=== PATIENT | female | born 1950 | race Two or more races ===

== ENCOUNTER → 2020-02-05 | Emergency (ER) | payer OTHER ==
[~2020-02-05] VITALS: Ht 172.7 cm; Wt 90.7 kg
[~2020-02-05] MED LIST: ACETAMINOPHEN 325 MG TAB PO ONE; ASPirin 81 mg TAB PO ONE; IOHEXOL 350 MG/ML 100ML IJ ONE
[2020-02-05 14:11] LABS: Basophils # (auto) 0.1 10 ^3/uL (0-0.2); Basophils % (auto) 1.1 % (0.0-2.0); Eosinophils # (auto) 0.1 10 ^3/uL (0-0.8); Eosinophils % (auto) 1.5 % (0.0-7.0); Hematocrit 37.8 % (36.0-46.0); Lymphocytes # (auto) 1.9 10 ^3/uL (0.4-5.4); Lymphocytes % (auto) 32.6 % (10.0-50.0); Mean Corpuscular Hemoglobin 31.7 pg (28.0-32.0); Mean Corpuscular Hgb Conc. 34.4 g/dL (32.0-36.0); Mean Corpuscular Volume 92.1 fL (80.0-100.0); Monocytes # (auto) 0.5 10 ^3/uL (0-1.3); Monocytes % (auto) 8.1 % (0.0-12.0); Neutrophils # (auto) 3.3 10 ^3/uL (1.6-8.6); Neutrophils % (auto) 56.7 % (37.0-80.0); Platelet Count (auto) 198 10^3/uL (140-450); Red Cell Distribution Width 12.7 % (11.8-14.3); White Blood Cell 5.8 10^3/uL (4.4-10.8)
[2020-02-05 14:25] LABS: INR 0.94 (0.9-1.15); Partial Thromboplastin Time 27.9 sec (23.64-32.05)
[2020-02-05 14:28] LABS: Albumin 3.7 g/dL (3.4-5.0); Anion Gap 8 (5-15); Blood Urea Nitrogen 11 mg/dL (7-18); Calcium 8.7 mg/dL (8.5-10.1); Carbon Dioxide 22 mmol/L (21-32); Chloride 110 mmol/L (98-107); Glucose 98 mg/dL (74-106); Potassium 3.8 mmol/L (3.5-5.1); Sodium 140 mmol/L (136-145)
[2020-02-05 14:34] LABS: Alanine Aminotransferase 38 U/L (13-56); Alkaline Phosphatase 78 U/L (45-117); Aspartate Aminotransferase 29 U/L (15-37); BUN/Creatinine Ratio 12.1; Bilirubin, Total 0.3 mg/dL (0.2-1.0); GFR African American 79 mL/min; GFR Non-African American 65 mL/min; Total Protein 7.6 g/dL (6.4-8.2)
[2020-02-05 14:55] LABS: Urine Bacteria NONE SEEN /hpf (None Seen); Urine Blood Negative /uL (Negative); Urine Specific Gravity 1.008 (1.001-1.035); Urine WBC <1 /hpf (0 - 5)
[2020-02-05 19:15] VITALS: BP 134/71
== END | disposition home or self-care (01) ==
LOC: ER 13:23 → EDBD 13:23
DX: R07.89 Other chest pain (principal); J20.9 Acute bronchitis, unspecified; K83.8 Other specified diseases of biliary tract; R79.89 Other specified abnormal findings of blood chemistry; R94.6 Abnormal results of thyroid function studies; I10 Essential (primary) hypertension; E78.5 Hyperlipidemia, unspecified; Z90.49 Acquired absence of other specified parts of digestive tract; Z88.0 Allergy status to penicillin; Z88.5 Allergy status to narcotic agent; Z88.2 Allergy status to sulfonamides; Z88.8 Allergy status to other drugs, medicaments and biological substances
CPT/HCPCS: 36415; 71046; 71275; 80053; 81001; 83735; 83880; 84443; 84484; 85025; 85379; 85610; 85730; 93005; 99285; J7030; Q9967

== ENCOUNTER 2021-01-14 17:02 | Emergency (ER) | payer OTHER ==
[~2021-01-14] VITALS: Ht 152.4 cm; Wt 77.1 kg
[2021-01-14 17:06] VITALS: BP 146/86
== END 2021-01-14 20:48 | disposition home or self-care (01) ==
LOC: ER 17:02
DX: M77.32 Calcaneal spur, left foot (principal); M79.672 Pain in left foot; E78.5 Hyperlipidemia, unspecified; I10 Essential (primary) hypertension; Z88.6 Allergy status to analgesic agent; Z88.0 Allergy status to penicillin; Z88.5 Allergy status to narcotic agent; Z88.2 Allergy status to sulfonamides; Z90.49 Acquired absence of other specified parts of digestive tract
CPT/HCPCS: 73630; 93971

== ENCOUNTER 2021-11-13 10:24 | Emergency (ER) | payer OTHER ==
[~2021-11-13] VITALS: Ht 170.2 cm; Wt 75.7 kg
[2021-11-13 11:13] LABS: Basophils # (auto) 0 10 ^3/uL (0-0.2); Basophils % (auto) 0.8 % (0.0-2.0); Eosinophils # (auto) 0.1 10 ^3/uL (0-0.8); Eosinophils % (auto) 1.3 % (0.0-7.0); Hematocrit 41.6 % (36.0-46.0); Hemoglobin 14.2 g/dL (12.2-16.2); Lymphocytes # (auto) 1.3 10 ^3/uL (0.4-5.4); Lymphocytes % (auto) 26.6 % (10.0-50.0); Mean Corpuscular Hemoglobin 31.2 pg (28.0-32.0); Mean Corpuscular Hgb Conc. 34.1 g/dL (32.0-36.0); Mean Corpuscular Volume 91.5 fL (80.0-100.0); Monocytes # (auto) 0.3 10 ^3/uL (0-1.3); Monocytes % (auto) 7.1 % (0.0-12.0); Neutrophils # (auto) 3.1 10 ^3/uL (1.6-8.6); Neutrophils % (auto) 64.2 % (37.0-80.0); Nucleated Red Blood Cells % 0.1 %; Red Blood Cells 4.55 10^6/uL (4.0-5.20); Red Cell Distribution Width 12.9 % (11.8-14.3); White Blood Cell 4.8 10^3/uL (4.4-10.8)
[2021-11-13] MEDS ORDERED: MECL1TAB42 PO (11:30)
[2021-11-13] MEDS ORDERED: MECLIZINE HCL 25 MG TAB PO ONE (11:30)
[2021-11-13 11:33] LABS: Potassium 3.8 mmol/L (3.5-5.1)
[2021-11-13 11:45] LABS: Albumin 3.9 g/dL (3.4-5.0); BUN/Creatinine Ratio 13.7; Bilirubin, Total 0.6 mg/dL (0.2-1.0); Calcium 8.7 mg/dL (8.5-10.1); Total Protein 8.1 g/dL (6.4-8.2)
[2021-11-13 13:00] VITALS: BP 138/78
== END 2021-11-13 15:02 | disposition home or self-care (01) ==
LOC: ER 10:24
DX: R42 Dizziness and giddiness (principal); I10 Essential (primary) hypertension; E03.9 Hypothyroidism, unspecified; E78.5 Hyperlipidemia, unspecified; Z90.49 Acquired absence of other specified parts of digestive tract
CPT/HCPCS: 36415; 70450; 71045; 80053; 84484; 85025; 93005; 99285; J8597

== ENCOUNTER 2022-04-30 13:03 | Emergency (ER) | payer OTHER ==
[~2022-04-30] VITALS: Ht 152.4 cm; Wt 78.0 kg
[~2022-04-30 13:03] MED LIST changes: -ACETAMINOPHEN 325 MG TAB PO ONE; -ASPirin 81 mg TAB PO ONE; -IOHEXOL 350 MG/ML 100ML IJ ONE; +MECL1TAB42 PO
[2022-04-30 13:26] VITALS: BP 151/72
[2022-04-30 14:49] LABS: Basophils # (auto) 0 10 ^3/uL (0-0.2); Basophils % (auto) 0.9 % (0.0-2.0); Eosinophils # (auto) 0 10 ^3/uL (0-0.8); Eosinophils % (auto) 0.4 % (0.0-7.0); Hematocrit 38.3 % (36.0-46.0); Hemoglobin 12.7 g/dL (12.2-16.2); Lymphocytes # (auto) 1.2 10 ^3/uL (0.4-5.4); Lymphocytes % (auto) 22.2 % (10.0-50.0); Mean Corpuscular Hemoglobin 30.4 pg (28.0-32.0); Mean Corpuscular Volume 92.2 fL (80.0-100.0); Monocytes # (auto) 0.4 10 ^3/uL (0-1.3); Monocytes % (auto) 7.8 % (0.0-12.0); Neutrophils # (auto) 3.7 10 ^3/uL (1.6-8.6); Neutrophils % (auto) 68.7 % (37.0-80.0); Red Blood Cells 4.16 10^6/uL (4.0-5.20); Red Cell Distribution Width 12.6 % (11.8-14.3); White Blood Cell 5.4 10^3/uL (4.4-10.8)
[2022-04-30 15:35] LABS: Albumin 3.5 g/dL (3.4-5.0); Calcium 8.5 mg/dL (8.5-10.1); Potassium 3.9 mmol/L (3.5-5.1)
[2022-04-30 15:39] LABS: BUN/Creatinine Ratio 19.2; Bilirubin, Total 0.5 mg/dL (0.2-1.0); Total Protein 6.6 g/dL (6.4-8.2)
== END 2022-04-30 17:51 | disposition home or self-care (01) ==
LOC: ER 13:03
DX: F41.9 Anxiety disorder, unspecified (principal); I10 Essential (primary) hypertension; R22.0 Localized swelling, mass and lump, head; E78.5 Hyperlipidemia, unspecified; E03.9 Hypothyroidism, unspecified; Z90.49 Acquired absence of other specified parts of digestive tract; Z79.899 Other long term (current) drug therapy; Z88.0 Allergy status to penicillin; Z88.5 Allergy status to narcotic agent; Z88.2 Allergy status to sulfonamides; Z88.8 Allergy status to other drugs, medicaments and biological substances
CPT/HCPCS: 36415; 70491; 71045; 80053; 84484; 85025; 93005

== ENCOUNTER 2025-04-08 13:34 | Emergency (ER) | payer OTHER ==
[~2025-04-08] VITALS: Ht 157.5 cm; Wt 76.3 kg
--- NOTE | 2025-04-08 14:25 | ED.PDOC ---
History of Present Illness HPI Comments This is a 74 year old female presenting to the ED with chief complaint of dizziness. Patient reports that she has been experiencing intermittent dizziness with associated lightheadedness and nausea for a few months now, however, this morning she felt worse with the room spinning. Patient relays that she is f ollowing up with a Neurologist for these symptoms and had an EEG performed on 12/13/24. Patient denies any chest pain, SOB, dizziness, vomiting, abdominal pain, weakness, or numbness. Chief Complaint: Dizziness Time Seen by MD: 14:24 Primary Care Provider: JARRET Reviewed Notes: Nurses Notes, Medications, Allergies Allergies: Coded Allergies: Celecoxib (Verified Allergy, Severe, 02/05/20) Penicillins (Verified Allergy, Severe, 02/05/20) Codeine (Verified Allergy, Unknown, 02/05/20) RASH Sulfa Antibiotics (Verified Adverse Reaction, Unknown, 02/05/20) Home Meds Active Scripts Meclizine HCl (Meclizine 25) 25 Mg Tab, 25 MG PO BS for 7 Days, #7 TAB Prov:EZ RACHEL MD 11/13/21 Information Source: Patient, Spouse Mode of Arrival: Ambulatory Severity: Moderate Timing: Months Duration: Intermittent Prehospital treatment: None Past Medical History PAST MEDICAL HISTORY: High Lipids, HTN, Thyroid Surgical History: Cholecystectomy 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 Family History Family History: Unknown, Family hx of heart yun, Family hx of HTN Social History Smoker: Non-Smoker Alcohol: Rarely Drugs: Denies Drug Use Lives In: Home Constitutional: denies: chills, diaphoresis, fatigue, fever, malaise, sweats, weakness, others EENTM: denies: blurred vision, double vision, ear bleeding, ear discharge, ear drainage, ear pain, ear ringing, eye pain, eye redness, hearing loss, mouth pain, mouth swelling, nasal discharge, nose bleeding, nose congestion, nose pain, photophobia, tearing, throat pain, throat swelling, voice changes, others Respiratory: denies: cough, hemoptysis, orthopnea, SOB at rest, shortness of breath, SOB with excertion, stridor, wheezing, others Cardiovascular: reports: lightheadedness; denies: chest pain, dizzy spells, diaphoresis, Dyspnea on exertion, edema, irregular heart beat, left arm pain, palpitations, PND, syncope, others Gastrointestinal: reports: nausea; denies: abdomen distended, abdominal pain, blood streaked bowels, constipated, diarrhea, dysphagia, difficulty swallowing, hematemesis, melena, poor appetite, poor fluid intake, rectal bleeding, rectal pain, vomiting, others Genitourinary: denies: abnormal vagina bleeding, burning, dyspareunia, dysuria, flank pain, frequency, hematuria, incontinence, pain, , vagina discharge, urgency, others Neurological: reports: dizziness; denies: fainting, headache, left sided numbness, left sided weakness, numbness, paresthesia, pre-existing deficit, right sided numbness, right sided weakness, seizure, speech problems, tingling, tremors, weakness, others Musculoskeletal: denies: back pain, gout, joint pain, joint swelling, muscle pain, muscle stiffness, neck pain, others Integumetry: denies: bruises, change in color, change in hair/nails, dryness, laceration, lesions, lumps, rash, wounds, others Allergic/Immunocompromised: denies: Difficulty Healing, Frequent Infections, Hives, Itching, others Hematologic/Lymphatic: denies: anemia, blood clots, easy bleeding, easy bruising, swollen glands, others Endocrine: denies: excessive hunger, excessive sweating, excessive thirst, excessive urination, flushing, intolerance to cold, intolerance to heat, unexplained weight gain, unexplained weight loss, others Psychiatric: denies: anxiety, bipolar disorder, depression, hopeless, panic disorder, schizophrenia, sleepless, suicidal, others All Other Systems: Reviewed and Negative Physical Exam General Appearance: Moderate Distress, Normal HEENT: Normal ENT Inspection, Pharynx Normal, TMs Normal Neck: Full Range of Motion, Non-Tender, Normal, Normal Inspection Respiratory: Chest Non-Tender, Lungs Clear, No Accessory Muscle Use, No Respiratory Distress, Normal Breath Sounds Cardiovascular: No Edema, No JVD, No Murmur, No Gallop, Normal Peripheral Pulses, Regular Rate/Rhythm Breast Exam: Deferred Gastrointestinal: No Organomegaly, Non Tender, No Pulsatile Mass, Normal Bowel Sounds, Soft Genitalia: Deferred Pelvic: Deferred Rectal: Deferred Extremities: No calf tenderness, Normal capillary refill, Normal inspection, Normal range of motion, Non-tender, No pedal edema Musculoskeletal : Apperance: Normal Neurologic: Alert, air brush artist II-XII nml as Tested, No Motor Deficits, Normal Affect, Normal Mood, No Sensory Deficits Cerebellar Function: Normal Reflexes: Normal Skin: Dry, Normal Color, Warm Peripheral Pulses: 3+ Radial (R), 3+ Radial (L) Lymphatic: No Adenopathy Was a procedure done? Was a procedure done?: No Differential Dx Considerations may include: Autonomic disorder Electrolyte imbalance X-Ray, Labs, Meds, VS Vital Signs Date Time Temp Pulse Resp B/P (MAP) Pulse Ox O2 Delivery O2 Flow Rate FiO2 04/08/25 16:00 97.5 67 16 140/71 (94) 96 97.5 04/08/25 13:47 68 04/08/25 13:35 98.1 70 16 137/77 95 98.1 Lab Test 04/08/25 15:20 04/08/25 13:41 Range/Units White Blood Count 5.5 4.4-10.8 10^3/uL Red Blood Count 4.28 4.0-5.20 10^6/uL Hemoglobin 13.7 12.2-16.2 g/dL Hematocrit 40.1 36.0-46.0 % Mean Corpuscular Volume 93.7 80.0-100.0 fL Mean Corpuscular Hemoglobin 32.0 28.0-32.0 pg Mean Corpuscular Hemoglobin Concent 34.2 32.0-36.0 g/dL Red Cell Distribution Width 12.9 11.8-14.3 % Platelet Count 172 140-450 10^3/uL Mean Platelet Volume 7.7 6.9-10.8 fL Neutrophils (%) (Auto) 59.5 37.0-80.0 % Lymphocytes (%) (Auto) 30.9 10.0-50.0 % Monocytes (%) (Auto) 7.9 0.0-12.0 % Eosinophils (%) (Auto) 1.0 0.0-7.0 % Basophils (%) (Auto) 0.7 0.0-2.0 % Neutrophils # (Auto) 3.3 1.6-8.6 10 ^3/uL Lymphocytes # (Auto) 1.7 0.4-5.4 10 ^3/uL Monocytes # (Auto) 0.4 0-1.3 10 ^3/uL Eosinophils # (Auto) 0.1 0-0.8 10 ^3/uL Basophils # (Auto) 0 0-0.2 10 ^3/uL Nucleated Red Blood Cells 0.1 % Sodium Level 142 136-145 mmol/L Potassium Level 4.2 3.5-5.1 mmol/L Chloride Level 108 H 98-107 mmol/L Carbon Dioxide Level 26 20-31 mmol/L Anion Gap 8 5-15 Blood Urea Nitrogen 18 9-23 mg/dL Creatinine 1.00 0.550-1.02 mg/dL Glomerular Filtration Rate Calc 59 >90 mL/min BUN/Creatinine Ratio 18.0 10.0-20.0 Serum Glucose 86 74-106 mg/dL Calcium Level 9.6 8.7-10.4 mg/dL Troponin I High Sensitivity < 3 L </=34 ng/L POC Glucose 89 70-106 mg/dl Patient alert. Complaining of dizziness. Has been followed by Neurology. Vitals stable. Reviewed her notes from her neurologist. Blood sugar within normal limits. Heart rate within normal limits. Spoke with [facility] physician. She will be discharged as per [facility] er physician with follow up scan. Explained to the patient. Continue monitoring. Time of 1ST Reevaluation: 14:59 Reevaluation 1ST: Unchanged Patient Education/Counseling: Diagnosis, Treatment Family Education/Counseling: Diagnosis, Treatment SEPSIS Sepsis Screen Date sepsis recognized/suspect: Apr 08, 2025 Time Sepsis recognized/suspect: 1334 Recent Procedure: No On Antibiotic Therapy: No Respiratory Rate >20: No Heart Rate >90: No Temp<36 C (96.8 F) or >38.3 C: No SBP <90 or MAP <65 mmHG: No New Acute Mental Status Change: No Is the patient on CPAP, BIPAP,: No Physician Orders Urinalysis (04/08/25 14:28) Head Without Contrast (04/08/25 14:28) Vital Signs Date Time Temp Pulse Resp B/P (MAP) Pulse Ox O2 Delivery O2 Flow Rate FiO2 04/08/25 16:00 97.5 67 16 140/71 (94) 96 97.5 04/08/25 13:47 68 04/08/25 13:35 98.1 70 16 137/77 95 98.1 Laboratory Tests Test 04/08/25 15:20 White Blood Count 5.5 10^3/uL (4.4-10.8) Departure 1 Departure Time of Disposition: 15:01 Impression: Primary Impression: Autonomic disorder Disposition: 09 ADMITTED INPATIENT Admit to: Med Surg Condition: Guarded Critical Care Note Critical Care Time?: No Stability Stability form required: No Heart Score Heart Score: Heart Score Response (Comments) Value History Slightly Suspicious 0 EKG Normal 0 Age >65 2 Risk Factors >3 or Hx ASHD 2 Troponin N/A 0 Total 4 I personally scribed for EZ RACHEL MD ([email or web address]) on 04/08/25 at 14:25. Electronically submitted by George Cage ([email or web address]). EZ RACHEL MD Apr 08, 2025 14:25
[2025-04-08 15:40] LABS: Hematocrit 40.1 % (36.0-46.0); Hemoglobin 13.7 g/dL (12.2-16.2); Mean Corpuscular Hemoglobin 32.0 pg (28.0-32.0); Mean Corpuscular Volume 93.7 fL (80.0-100.0); Nucleated Red Blood Cells % 0.1 %
[2025-04-08 15:45] LABS: Potassium 4.2 mmol/L (3.5-5.1); Sodium 142 mmol/L (136-145)
[2025-04-08 15:46] LABS: Anion Gap 8 (5-15); Carbon Dioxide 26 mmol/L (20-31)
[2025-04-08 15:47] LABS: Chloride 108 mmol/L (98-107)
[2025-04-08 15:52] LABS: BUN/Creatinine Ratio 18.0 (10.0-20.0); Blood Urea Nitrogen 18 mg/dL (9-23); Glucose 86 mg/dL (74-106)
--- NOTE | 2025-04-08 15:52 | DVH ---
CLINICAL HISTORY: dizzy TECHNIQUE: Helical imaging carried out from skull base to vertex without intravenous contrast. This e xam was performed according to our departmental dose optimization program. Up-to-date CT equipment an d radiation dose reduction techniques are utilized as appropriate. 49.47 CTDIVol: 49.47 mGy DLP: 793.24 mGy-cm WID: COMPARISON: HEAD WITHOUT CONTRAST on DOS: 11/13/21 FINDINGS: The ventricles and subarachnoid spaces are normal in size and configuration for patient age. There i s no midline shift or mass effect. The carmichael white matter interfaces are maintained. The basal cistern s are patent. There is no evidence of acute intracranial hemorrhage or extra-axial fluid collection. The mastoid air cells and visualized paranasal sinuses are well-aerated. Prior ocular lens replacemen t. IMPRESSION: No acute intracranial abnormality.
[2025-04-08 15:58] LABS: Calcium 9.6 mg/dL (8.7-10.4)
--- NOTE | 2025-04-08 16:03 | DVHDS2 ---
New Physician D'charge PN Admitting Diagnosis Admitting Diagnosis dizziness Discharge Diagnosis vertigo Operations or Procedures none Reason(s) For Hospitalization Surgery Hospital Course 74 F with dizziness on and off over the last several months. She states she has seen and neurologist and had a work up done including an EEG with no abnormal findings. She comes today with the same complaints with intermittent dizziness. Head CT nml, she has no focal deficits. Her vitals are all stable with no evidence of hemodynamic instability. She has a CBC done which was completely unremarkable and chemistry all completely normal. Troponin enzyme was negative. She is A/O x4 with no neurologic deficits. She will be discharged home with outpt PCP and continued neurology follow up. Patient will also have outpt MRI scan this week. Discussed with ER provider and all parties in agreement with niya lopez. Treatment Plan Discharge Condition of Discharge Good Disposition Home Discharge Instructions Diet: See Comment Activity: No Restrictions, As Tolerated Medications: see med sheet Follow Up Care Follow Up/Referral: pcp neuro Discharge Statement: "Patient was advised to return to the ER or call 911 if any headaches, dizziness, shortness of breath, chest pain, abdominal pain, bleeding, fevers, or worsening of medical condition. Patient was counseled about treatment plan, medications, possible side effects, patientverbalized understanding. All questions were answered to the best of my ability. This discharge took greater then 30 minutes in planning, reviewing docume ntation, counseling the patient, and discussing with other team members." ASHVIN KAPLAN MD Apr 08, 2025 16:03
[2025-04-08 17:56] VITALS: BP 150/83; PULSE 78; RESP 18; TEMP 97.6; O2SAT 98
== END 2025-04-08 18:07 | disposition home or self-care (01) ==
LOC: ER 13:34
DX: G90.9 Disorder of the autonomic nervous system, unspecified (principal); R11.0 Nausea; I10 Essential (primary) hypertension; E78.5 Hyperlipidemia, unspecified; E03.9 Hypothyroidism, unspecified; Z90.49 Acquired absence of other specified parts of digestive tract; Z88.0 Allergy status to penicillin; Z88.2 Allergy status to sulfonamides; Z88.5 Allergy status to narcotic agent
CPT/HCPCS: 36415; 70450; 80048; 82947; 82962; 84484; 85025

== ENCOUNTER 2025-04-20 10:37 | Inpatient (IN) | payer OTHER ==
[~2025-04-20] VITALS: Ht 152.4 cm; Wt 77.3 kg
--- NOTE | 2025-04-20 10:51 | ED.PDOC ---
HPI (NEURO) HPI Comments 74 year old female presents to the ED with a chief complaint of dizziness onset today (04/20/25) around 08:30. Patient states she woke up today around 08:30, noticed she was experiencing dizziness, LT sided facial droop, tremors. Patient has been experiencing intermittent dizziness since July 2024, has followed up with PCP, appointments are given months in advance. She was seen in this ED 04/08/25, for similar symptoms, was discharged. PMHx HLD, HTN, thyroid disease. Denies chest pain, shortness of breath, fever, chills, cough, congestion, abdominal pain, nausea, vomiting. No other symptoms or modifying factors present at this time. 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 Family History Family History: Unknown, Family hx of heart yun, Family hx of HTN Social History Smoker: Non-Smoker Alcohol: Rarely Drugs: Denies Drug Use Lives In: Home Constitutional: denies: chills, diaphoresis, fatigue, fever, malaise, sweats, weakness, others EENTM: denies: blurred vision, double vision, ear bleeding, ear discharge, ear drainage, ear pain, ear ringing, eye pain, eye redness, hearing loss, mouth pain, mouth swelling, nasal discharge, nose bleeding, nose congestion, nose job n, photophobia, tearing, throat pain, throat swelling, voice changes, others Respiratory: denies: cough, hemoptysis, orthopnea, SOB at rest, shortness of breath, SOB with excertion, stridor, wheezing, others Cardiovascular: denies: chest pain, dizzy spells, diaphoresis, Dyspnea on exertion, edema, irregular heart beat, left arm pain, lightheadedness, palpitations, PND, syncope, others Gastrointestinal: denies: abdomen distended, abdominal pain, blood streaked bowels, constipated, diarrhea, dysphagia, difficulty swallowing, hematemesis, melena, nausea, poor appetite, poor fluid intake, rectal bleeding, rectal pain, vomiting, others Genitourinary: denies: abnormal vagina bleeding, burning, dyspareunia, dysuria, flank pain, frequency, hematuria, incontinence, pain, , vagina discharge, urgency, others Neurological: reports: dizziness, others (LT sided facial droop); denies: fainting, headache, left sided numbness, left sided weakness, numbness, paresthesia, pre-existing deficit, right sided numbness, right sided weakness, seizure, speech problems, tingling, tremors, weakness Musculoskeletal: denies: back pain, gout, joint pain, joint swelling, muscle pain, muscle stiffness, neck pain, others Integumetry: denies: bruises, change in color, change in hair/nails, dryness, laceration, lesions, lumps, rash, wounds, others Allergic/Immunocompromised: denies: Difficulty Healing, Frequent Infections, Hives, Itching, others Hematologic/Lymphatic: denies: anemia, blood clots, easy bleeding, easy bruising, swollen glands, others Endocrine: denies: excessive hunger, excessive sweating, excessive thirst, excessive urination, flushing, intolerance to cold, intolerance to heat, unexplained weight gain, unexplained weight loss, others Psychiatric: denies: anxiety, bipolar disorder, depression, hopeless, panic disorder, schizophrenia, sleepless, suicidal, others All Other Systems: Reviewed and Negative Physical Exam General Appearance: Normal, Other (appears anxious, tremorlous) HEENT: Normal ENT Inspection, Pharynx Normal, TMs Normal Neck: Full Range of Motion, Non-Tender, Normal, Normal Inspection Respiratory: Chest Non-Tender, Lungs Clear, No Accessory Muscle Use, No Respiratory Distress, Normal Breath Sounds Cardiovascular: No Edema, No JVD, No Murmur, No Gallop, Normal Peripheral Pulses, Regular Rate/Rhythm Breast Exam: Deferred Gastrointestinal: No Organomegaly, Non Tender, No Pulsatile Mass, Normal Bowel Sounds, Soft Genitalia: Deferred Pelvic: Deferred Rectal: Deferred Extremities: No calf tenderness, Normal capillary refill, Normal inspection, Normal range of motion, Non-tender, No pedal edema Musculoskeletal : Apperance: Normal Neurologic: Alert, Facial Droop (LT sided), Other (tremorlous) Cerebellar Function: Normal Reflexes: Normal Skin: Dry, Normal Color, Warm Lymphatic: No Adenopathy Was a procedure done? Was a procedure done?: No X-Ray, Labs, Meds, VS Vital Signs Date Time Temp Pulse Resp B/P (MAP) Pulse Ox O2 Delivery O2 Flow Rate FiO2 04/20/25 10:46 89 04/20/25 10:37 98.0 104 20 163/70 96 98.0 Lab Test 04/20/25 11:58 04/20/25 11:12 Range/Units Urine Color Colorless Yellow Urine Clarity Clear Clear Urine pH 7.5 5.0-9.0 Urine Specific [place] 1.007 1.001-1.035 Urine Protein Negative Negative Urine Ketones Negative Negative Urine Blood Negative Negative /uL Urine Nitrite Negative Negative Urine Bilirubin Negative Negative Urine Urobilinogen Normal Negative mg/dL Urine Leukocyte Esterase Negative Negative /uL Urine RBC 2 0 - 4 /hpf Urine Microscopic WBC < 1 0-5 /HPF Urine Squamous Epithelial Cells Few <5 /hpf Urine Bacteria None seen None Seen /hpf Urine Glucose Normal Normal mg/dL White Blood Count 4.1 L 4.4-10.8 10^3/uL Red Blood Count 4.35 4.0-5.20 10^6/uL Hemoglobin 13.9 12.2-16.2 g/dL Hematocrit 40.4 36.0-46.0 % Mean Corpuscular Volume 92.9 80.0-100.0 fL Mean Corpuscular Hemoglobin 31.9 28.0-32.0 pg Mean Corpuscular Hemoglobin Concent 34.4 32.0-36.0 g/dL Red Cell Distribution Width 12.8 11.8-14.3 % Platelet Count 196 140-450 10^3/uL Mean Platelet Volume 7.9 6.9-10.8 fL Neutrophils (%) (Auto) 57.9 37.0-80.0 % Lymphocytes (%) (Auto) 33.5 10.0-50.0 % Monocytes (%) (Auto) 6.7 0.0-12.0 % Eosinophils (%) (Auto) 0.9 0.0-7.0 % Basophils (%) (Auto) 1.0 0.0-2.0 % Neutrophils # (Auto) 2.4 1.6-8.6 10 ^3/uL Lymphocytes # (Auto) 1.4 0.4-5.4 10 ^3/uL Monocytes # (Auto) 0.3 0-1.3 10 ^3/uL Eosinophils # (Auto) 0 0-0.8 10 ^3/uL Basophils # (Auto) 0 0-0.2 10 ^3/uL Nucleated Red Blood Cells 0.1 % Sodium Level 141 136-145 mmol/L Potassium Level 3.6 3.5-5.1 mmol/L Chloride Level 108 H 98-107 mmol/L Carbon Dioxide Level 19 L 20-31 mmol/L Anion Gap 14 5-15 Blood Urea Nitrogen 11 9-23 mg/dL Creatinine 1.04 H 0.550-1.02 mg/dL Glomerular Filtration Rate Calc 56 >90 mL/min BUN/Creatinine Ratio 10.6 10.0-20.0 Serum Glucose 140 H 74-106 mg/dL Calcium Level 9.9 8.7-10.4 mg/dL Troponin I High Sensitivity < 3 L </=34 ng/L [place] [id number] Ph: [phone] DIAGNOSTIC IMAGING Diagnostic Imaging Report : [id number] Signed PATIENT: YOLANDA EASLEY ACCT: [id number] UNIT: [id number] : 1950 LOC: ER ROOM / BED: / AGE / SEX: 74 / F ADM STATUS: REG ER SERVICE 1043 ORDERING PHYSICIAN: KIMBERLY HOGUE MD PROCEDURE(s): CXRP - CHEST PORTABLE REASON: facial droop ORDER NUMBER(s): [id number], ACCESSION NUMBER(s): [id number] EXAM: XY CHEST PORTABLE Indication: facial droop Technique: Single frontal view of the chest was obtained Comparison: CHEST PORTABLE on DOS: 04/30/22, CXRP on DOS: 04/30/22, CHEST PORTABLE on DOS: 11/13/21 FINDINGS: Lines and Tubes: None Lungs: No focal consolidation. Pleura: No effusion. No pneumothorax. Cardiomediastinal contours: Unremarkable. Atherosclerotic vascular calcifications of the thoracic aorta are noted. Bones: No acute osseous abnormality. IMPRESSION: No acute cardiopulmonary disease. ATED BY: JOVON LAZO MD DICTATED DATE/TIME: 04/20/251254 SIGNED BY: JOVON LAZO MD SIGNED DATE/TIME: 04/20/251254 CC: [place] [id number] Ph: [phone] DIAGNOSTIC IMAGING Diagnostic Imaging Report : [id number] Signed PATIENT: YOLANDA AESLEY ACCT: [id number] UNIT: [id number] : 1950 LOC: ER ROOM / BED: / AGE / SEX: 74 / F ADM STATUS: REG ER SERVICE 1043 ORDERING PHYSICIAN: KIMBERLY HOGUE MD PROCEDURE(s): HWOCT - HEAD WITHOUT CONTRAST REASON: left facial droop ORDER NUMBER(s): [id number], ACCESSION NUMBER(s): [id number] EXAM: CT HEAD WITHOUT CONTRAST INDICATION: left facial droop TECHNIQUE: CT of the head without intravenous contrast. Radiation Dose : 1. Head: CT Dose: CTDI volume is 57.5 mGy. Dose-length product is 1.71 mGy*cm The dose indicators for CT are the volume Computed Tomography (CT) Dose Index (CTDIvol) and the Dose Length Product (DLP), and are measured in units of mGy and mGy-cm, respectively. These indicators are not patient dose, but values generated from the CT scanner acquisition factors. The report includes radiation exposure data for exposures received during this examination. COMPARISON: CT HEAD WITHOUT CONTRAST on DOS: 04/08/25, HEAD WITHOUT CONTRAST on DOS: 11/13/21 FINDINGS: There is no evidence of acute intracranial hemorrhage, extra-axial collection, mass effect, midline shift, herniation or hydrocephalus. The ventricles, sulci and cisterns are age appropriate. The carmichael-white differentiation is intact. The visualized paranasal sinuses and mastoid air cells are clear. The surrounding soft tissues and osseous structures are unremarkable. IMPRESSION: No acute intracranial abnormality. Radiation optimization: All CT scans at this facility use at least one of these dose optimization techniques: automated exposure control mA and/or kV adjustment per patient size (includes targeted exams where dose is matched to clinical indication) or iterative reconstruction. ATED BY: JOHN COBOS MD DICTATED DATE/TIME: 04/20/25 1205 SIGNED BY: JOHN COBOS MD SIGNED DATE/TIME: 04/20/25 1205 CC: Time of 1ST Reevaluation: 11:10 Reevaluation 1ST: Unchanged Patient Education/Counseling: Diagnosis, Treatment, Prognosis Family Education/Counseling: Diagnosis, Treatment, Prognosis Additional Information The following tests were ordered, and results were reviewed by me: BMP, CBC, TROP-x3, UA, XY CHEST, CT HEAD WO CONTRAST Additional Information was gathered from interviewing the following independent historians: spouse I reviewed and agreed with the following test results read by other providers: XY CHEST, CT HEAD WO CONTRAST I discussed treatment and results with medical personnel and: patient and spouse Comprehensive systems review obtained and negative except for what is stated in the HPI. Critical Care Note Critical Care Time?: No Stability Stability form required: No I personally scribed for KIMBERLY HOGUE MD ([email or web address]) on 04/20/25 at 10:51. Electronically submitted by Mesha Werner ([email or web address]). I personally scribed for KIMBERLY HOGUE MD ([email or web address]) on 04/20/25 at 10:53. Electronically submitted by Mesha Werner ([email or web address]). I personally scribed for KIMBERLY HOGUE MD ([email or web address]) on 04/20/25 at 13:00. Electronically submitted by Mesha Werner ([email or web address]). KIMBERLY HOGUE MD Apr 20, 2025 10:51
--- NOTE | 2025-04-20 11:22 | ECG ---
[facility] Test Date: 2025-04-20 Test Time: 10:46:33 Pat Name: YOLANDA EASLEY Department: ED Room: 0278T Gender: F [place] Boss: ASIF : 1950 Requested By: KIMBERLY HOGUE Order Number: [id number] Reading MD: Osmin Novak Measurements Intervals [place] Rate: 89 P: 42 MN: 155 QRS: 63 QRSD: 91 T: 62 QT: 403 QTc: 491 Interpretive Statements Sinus rhythm Minimal ST depression, inferior leads Borderline prolonged QT interval Electronically Signed On 04-25-2025 22:36:51 PDT by Osmin Novak Please click the below link to view image of tracing.
[2025-04-20 11:39] LABS: Hematocrit 40.4 % (36.0-46.0); Hemoglobin 13.9 g/dL (12.2-16.2); Mean Corpuscular Hemoglobin 31.9 pg (28.0-32.0); Mean Corpuscular Volume 92.9 fL (80.0-100.0); Nucleated Red Blood Cells % 0.1 %
[2025-04-20 11:48] LABS: Potassium 3.6 mmol/L (3.5-5.1); Sodium 141 mmol/L (136-145)
[2025-04-20 11:49] LABS: Anion Gap 14 (5-15)
[2025-04-20 11:50] LABS: Calcium 9.9 mg/dL (8.7-10.4)
[2025-04-20 11:52] LABS: Carbon Dioxide 19 mmol/L (20-31); Chloride 108 mmol/L (98-107)
[2025-04-20 11:55] LABS: BUN/Creatinine Ratio 10.6 (10.0-20.0); Blood Urea Nitrogen 11 mg/dL (9-23)
[2025-04-20 12:00] VITALS: PULSE 82; RESP 19; O2SAT 100
--- NOTE | 2025-04-20 12:08 | DVH ---
EXAM: CT HEAD WITHOUT CONTRAST INDICATION: left facial droop TECHNIQUE: CT of the head without intravenous contrast. Radiation Dose : 1. Head: CT Dose: CTDI volume is 57.5 mGy. Dose-length product is 1.71 mGy*cm The dose indicators for CT are the volume Computed Tomography (CT) Dose Index (CTDIvol) and the Dose Length Product (DLP), and are measured in units of mGy and mGy-cm, respectively. These indicators are not patient dose, but values generated from the CT scanner acquisition factors. The report includes radiation exposure data for exposures received during this examination. COMPARISON: CT HEAD WITHOUT CONTRAST on DOS: 04/08/25, HEAD WITHOUT CONTRAST on DOS: 11/13/21 FINDINGS: There is no evidence of acute intracranial hemorrhage, extra-axial collection, mass effect, midline s hift, herniation or hydrocephalus. The ventricles, sulci and cisterns are age appropriate. The carmichael-white differentiation is intact. The visualized paranasal sinuses and mastoid air cells are clear. The surrounding soft tissues and osseous structures are unremarkable. IMPRESSION: No acute intracranial abnormality. Radiation optimization: All CT scans at this facility use at least one of these dose optimization binta hniques: automated exposure control mA and/or kV adjustment per patient size (includes targeted exam s where dose is matched to clinical indication) or iterative reconstruction.
[2025-04-20 12:14] LABS: Glucose 140 mg/dL (74-106)
[2025-04-20 12:31] LABS: Urine Protein, UAD Negative (Negative)
--- NOTE | 2025-04-20 12:58 | DVH ---
EXAM: XY CHEST PORTABLE Indication: facial droop Technique: Single frontal view of the chest was obtained Comparison: CHEST PORTABLE on DOS: 04/30/22, CXRP on DOS: 04/30/22, CHEST PORTABLE on DOS: 11/13/21 FINDINGS: Lines and Tubes: None Lungs: No focal consolidation. Pleura: No effusion. No pneumothorax. Cardiomediastinal contours: Unremarkable. Atherosclerotic vascular calcifications of the thoracic ao rta are noted. Bones: No acute osseous abnormality. IMPRESSION: No acute cardiopulmonary disease.
[2025-04-20] MEDS: IOHEXOL 350 MG/ML 100ML IJ ONE (15:32)
--- NOTE | 2025-04-20 15:43 | DVH ---
Procedure: CT ANGIO HEAD/Neck HISTORY: left sided facial droop Comparison Study: CT HEAD WITHOUT CONTRAST on DOS: 04/20/25, CT HEAD WITHOUT CONTRAST on DOS: 04/08/25, NECK WITH CONTRAST SOFT on DOS: 04/30/22, HEAD WITHOUT CONTRAST on DOS: 11/13/21 Exam Date:04/20/2025 03:05 PM TECHNIQUE: CTA head without and with intravenous contrast. CTA neck with intravenous contrast. 3D che [employer] postprocessing was performed and images were used for interpretation and reporting. Radiation Dose : CT Dose: CTDI volume is 22.02 mGy. Dose-length product is 757.58 mGy*cm FINDINGS: CTA head: There is normal enhancement of the visualized distal internal carotid, anterior and middle cerebral a rteries. There is a normal anterior communicating artery complex. There are bilateral posterior commu nicating arteries. The vertebral, basilar, cerebellar and posterior cerebral arteries are within norm al limits. The early parenchymal enhancement is grossly unremarkable. The visualized intracranial gregory ous structures are grossly unremarkable. CTA neck: The visualized thoracic aortic arch and proximal great vessels are unremarkable. The left common, int ernal and external carotid arteries are within normal limits. The right common, internal and external carotid arteries are within normal limits. The cervical segments of the right and left vertebral art eries are within normal limits. The limited visualized lung apices are clear. The surrounding soft ti ssues and osseous structures are otherwise unremarkable. IMPRESSION: No evidence of hemodynamically significant intracranial stenosis, proximal occlusion or aneurysm. No evidence of hemodynamically significant cervical stenosis or dissection. CAROTID STENOSIS REFERENCE Distal internal carotid artery diameter as the denominator for stenosis measurement: MILD = <50% stenosis. MODERATE = 50-69% stenosis. SEVERE = 70-89% stenosis. CRITICAL = 90-99% stenosis. OCCLUDED = 100% stenosis. All CT scans at this medical facility are performed using dose modulation techniques as appropriate t o a performed exam including the following: Automated exposure control was utilized; adjustment of th e MA and/or KV according to patient size; and use of iterative reconstruction technique.
[2025-04-20] MEDS ORDERED: HYDROcodone-ACET 5/325MG TAB PO PRN (16:15)
[2025-04-20] MEDS ORDERED: MORPHINE SULFATE INJ 2 MG/ml SYRG IV PRN ×2 (16:15)
[2025-04-20] MEDS ORDERED: ONDANSETRON HCL 4 MG/2 ML VIAL IV PRN (16:15)
[2025-04-20] MEDS ORDERED: NITROGLYCERIN 0.4 MG SL TAB SL PRN (16:15)
--- NOTE | 2025-04-20 16:26 | DVHHP2 ---
History of Present Illness Reason for Visit: Chronic dizziness with a left facial and left eye droop since morning. History of Present Illness 74-year-old female with a known history of hypertension, dyslipidemia, hypothyroidism who has a symptoms of chronic dizziness for a couple of years as per patient and patient's daughter at bedside. This morning she noticed that she is weak and left-sided facial droop as well as left eye droop eventually CT head was done which shows no evidence of acute pathology, CT angio head and neck shows no evidence of large vessel occlusion. Patient was recommended to be admitted for ruling out acute CVA. Patient is currently denies any chest pain shortness of breath fevers chills nausea vomiting diarrhea hematemesis hematochezia melena dysuria hematuria. Patient denies any episodes of similar k ind like left I do but does complaining of chronic dizziness. Cardiovascular: HTN, hyperipidemia POWDER COATER: Other (Chronic dizziness.) Past Surgical History: Cholecystectomy Family History: None Smoke: No ALCOHOL: none Review of Systems Review of Systems Twelve review of system are negative besides mentioned above. Allergies: Coded Allergies: Celecoxib (Verified Allergy, Severe, 02/05/20) Penicillins (Verified Allergy, Severe, 02/05/20) Codeine (Verified Allergy, Unknown, 02/05/20) RASH Sulfa Antibiotics (Verified Adverse Reaction, Unknown, 02/05/20) Medications Current Medications Medications Dose Ordered Sig/Marcela Route Start Time Stop Time Status Last Admin Dose Admin Sodium Chloride 1,000 ml @ 120 mls/hr Q8H20M IV 04/20/25 16:15 UNV Acetaminophen/ Hydrocodone Bitart 1 tab Q4HP PRN PO 04/20/25 16:15 UNV Ondansetron HCl 4 mg Q4HP PRN IV 04/20/25 16:15 UNV Enoxaparin Sodium 40 mg DAILY SC 04/21/25 10:00 UNV Acetaminophen 650 mg Q6HP PRN PO 04/20/25 16:15 UNV Morphine Sulfate 2 mg Q4HPRN PRN IV 04/20/25 16:15 UNV Nitroglycerin 0.4 mg Q5MINP PRN SL 04/20/25 16:15 UNV Morphine Sulfate 2 mg Q30M PRN IV 04/20/25 16:15 UNV Exam Vital Signs Vital Signs Date Time Temp Pulse Resp B/P (MAP) Pulse Ox O2 Delivery O2 Flow Rate FiO2 04/20/25 13:02 76 12 133/63 (86) 91 04/20/25 12:00 Room Air* 0 21 04/20/25 10:37 98.0 98.0 Exam HEENT pupils are reactive Neck is supple CV is S1-S2 regular rate and rhythm Respiratory are clear GI positive bowel sound Extremity no edema POWDER COATER no motor deficit Labs/Xrays Labs Test 04/20/25 13:17 04/20/25 11:58 04/20/25 11:12 Range/Units Troponin I High Sensitivity < 3 L </=34 ng/L Urine Color Colorless Yellow Urine Clarity Clear Clear Urine pH 7.5 5.0-9.0 Urine Specific [place] 1.007 1.001-1.035 Urine Protein Negative Negative Urine Ketones Negative Negative Urine Blood Negative Negative /uL Urine Nitrite Negative Negative Urine Bilirubin Negative Negative Urine Urobilinogen Normal Negative mg/dL Urine Leukocyte Esterase Negative Negative /uL Urine RBC 2 0 - 4 /hpf Urine Microscopic WBC < 1 0-5 /HPF Urine Squamous Epithelial Cells Few <5 /hpf Urine Bacteria None seen None Seen /hpf Urine Glucose Normal Normal mg/dL White Blood Count 4.1 L 4.4-10.8 10^3/uL Red Blood Count 4.35 4.0-5.20 10^6/uL Hemoglobin 13.9 12.2-16.2 g/dL Hematocrit 40.4 36.0-46.0 % Mean Corpuscular Volume 92.9 80.0-100.0 fL Mean Corpuscular Hemoglobin 31.9 28.0-32.0 pg Mean Corpuscular Hemoglobin Concent 34.4 32.0-36.0 g/dL Red Cell Distribution Width 12.8 11.8-14.3 % Platelet Count 196 140-450 10^3/uL Mean Platelet Volume 7.9 6.9-10.8 fL Neutrophils (%) (Auto) 57.9 37.0-80.0 % Lymphocytes (%) (Auto) 33.5 10.0-50.0 % Monocytes (%) (Auto) 6.7 0.0-12.0 % Eosinophils (%) (Auto) 0.9 0.0-7.0 % Basophils (%) (Auto) 1.0 0.0-2.0 % Neutrophils # (Auto) 2.4 1.6-8.6 10 ^3/uL Lymphocytes # (Auto) 1.4 0.4-5.4 10 ^3/uL Monocytes # (Auto) 0.3 0-1.3 10 ^3/uL Eosinophils # (Auto) 0 0-0.8 10 ^3/uL Basophils # (Auto) 0 0-0.2 10 ^3/uL Nucleated Red Blood Cells 0.1 % Sodium Level 141 136-145 mmol/L Potassium Level 3.6 3.5-5.1 mmol/L Chloride Level 108 H 98-107 mmol/L Carbon Dioxide Level 19 L 20-31 mmol/L Anion Gap 14 5-15 Blood Urea Nitrogen 11 9-23 mg/dL Creatinine 1.04 H 0.550-1.02 mg/dL Glomerular Filtration Rate Calc 56 >90 mL/min BUN/Creatinine Ratio 10.6 10.0-20.0 Serum Glucose 140 H 74-106 mg/dL Calcium Level 9.9 8.7-10.4 mg/dL SEPSIS Sepsis Screen Date sepsis recognized/suspect: Apr 20, 2025 Time Sepsis recognized/suspect: 1200 Recent Procedure: No On Antibiotic Therapy: No Respiratory Rate >20: No Heart Rate >90: No Temp<36 C (96.8 F) or >38.3 C: No SBP <90 or MAP <65 mmHG: No New Acute Mental Status Change: No Is the patient on CPAP, BIPAP,: No Physician Orders Chest Portable (04/20/25 10:43) Head Without Contrast (04/20/25 10:43) Angio Head/Neck (04/20/25 14:47) Admit (04/20/25 16:12) Code Status (04/20/25 16:12) 2 Gm Sodium Diet (04/20/25 Dinner) Sodium Chloride 0.9% (04/20/25 16:15) Hydrocodone-Acet 5/325mg Tab ([place] 5/32 (04/20/25 16:15) Ondansetron Hcl (Zofran) (04/20/25 16:15) Enoxaparin Sodium (Lovenox) (04/21/25 10:00) Fall Risk Precautions In Place QSHIFT (04/20/25 16:12) Complete Blood Count (04/21/25 04:00) Comprehensive Metabolic Panel (04/21/25 04:00) Pt Request For Service (04/20/25 16:12) Echo 2d Mode Cardiac Dop (04/20/25 16:12) Condition: Stable (04/20/25 16:12) Acetaminophen Tablet (Tylenol Tablet) (04/20/25 16:15) Morphine Sulfate Injection (04/20/25 16:15) Nitroglycerin Sublingual (Ntrostat Subli (04/20/25 16:15) Morphine Sulfate Injection (04/20/25 16:15) Stat Ekg For Chest Pain (04/20/25 16:12) Notify Md Of Changes From Base (04/20/25 16:12) Measurement Department Chief Clerk For 24 Hours (04/20/25 16:12) Emergency Dysrhythmia Protocol (04/20/25 16:12) Rhythm Strips Once Every Shift (04/20/25 16:12) Oxygen By Nasal Cannula (04/20/25 16:12) Brain Head Wo Contrast (04/20/25 16:12) Aspirin Tablet (04/21/25 10:00) Atorvastatin (Lipitor) (04/20/25 22:00) Vital Signs Date Time Temp Pulse Resp B/P (MAP) Pulse Ox O2 Delivery O2 Flow Rate FiO2 04/20/25 13:02 76 12 133/63 (86) 91 04/20/25 12:00 102 21 163/95 (117) 91 04/20/25 12:00 82 19 100 Room Air* 0 21 04/20/25 10:46 89 04/20/25 10:37 98.0 104 20 163/70 96 98.0 Laboratory Tests Test 04/20/25 11:12 White Blood Count 4.1 10^3/uL (4.4-10.8) L Assessment/Plan Assessment/Plan 74-year-old female with a known history of chronic dizziness currently on meclizine, hypertension, dyslipidemia, hypothyroidism who initially presented to the hospital with a chronic dizziness on and off, left eye droop found to have 1. Left eye droop ruled out acute CVA 2. Acute on chronic dizziness rule out vertebrobasilar insufficiency 3. Hypertension 4. Dyslipidemia Five hypothyroidism -tele observation, MRI brain noncontrast, aspirin statin, neurology consultation. Plan discussed with: Patient, Daughter My Orders Orders - LOYD PINTO MD Procedure Category Date Status Time Admit ADMIT 04/20/25 Transmitted 16:12 Code Status CODE 04/20/25 Transmitted 16:12 2 Gm Sodium Diet DIET 04/20/25 Transmitted Dinner Sodium Chloride 0.9% PHA 04/20/25 Logged 16:15 Hydrocodone-Acet PHA 04/20/25 Logged 5/325mg Tab ([place] 16:15 Ondansetron Hcl PHA 04/20/25 Logged (Zofran) 16:15 Enoxaparin Sodium PHA 04/21/25 Logged (Lovenox) 10:00 Fall Risk Precautions [facility] 04/20/[address] 16:12 Complete Blood Count LAB 04/21/25 Verified 04:00 Comprehensive LAB 04/21/25 Verified Metabolic Panel 04:00 Pt Request For Service PT 04/20/25 Logged 16:12 Echo 2d Mode Cardiac US 04/20/25 Logged DOP 16:12 Condition: Stable [facility] 04/20/25 In Process 16:12 Acetaminophen Tablet [facility] 04/20/25 Logged (Tylenol Tablet) 16:15 Morphine Sulfate [facility] 04/20/25 Logged Injection 16:15 Nitroglycerin [facility] 04/20/25 Logged Sublingual (Ntrostat 16:15 Morphine Sulfate [facility] 04/20/25 Logged Injection 16:15 Stat Ekg For Chest [facility] 04/20/25 In Process Pain 16:12 Notify Of Changes [facility] 04/20/25 In Process From Base 16:12 Measurement Department Chief Clerk For [facility] 04/20/25 In Process 24 Hours 16:12 Emergency Dysrhythmia [facility] 04/20/25 In Process Protocol 16:12 Rhythm Strips Once [facility] 04/20/25 In Process Every Shift 16:12 Oxygen By Nasal RT 04/20/25 Transmitted Cannula 16:12 Brain Head Wo Contrast MRI 04/20/25 Logged 16:12 Aspirin Tablet [facility] 04/21/25 Verified 10:00 Atorvastatin (Lipitor) [facility] 04/20/25 Verified 22:00 Date of Service: Apr 20, 2025 Billing Provider: LOYD PINTO MD Common Visit Codes: NOT BILLABLE LOYD PINTO MD Apr 20, 2025 16:26
--- NOTE | 2025-04-20 17:26 | DVH ---
PROCEDURE: MRI BRAIN HEAD WO CONTRAST INDICATION: Rule out acute CVA EXAM DATE: 04/20/2025 04:41 PM COMPARISON: CT HEAD WITHOUT CONTRAST on DOS: 04/20/25, CT HEAD WITHOUT CONTRAST on DOS: 04/08/25, HEAD W ITHOUT CONTRAST on DOS: 11/13/21 TECHNIQUE: MRI of the brain without intravenous contrast. FINDINGS: Diffusion weighted images of the brain demonstrate no evidence of acute infarction. There is no evidence of acute intracranial hemorrhage, extra-axial collection, mass effect, midline s hift, herniation or hydrocephalus. The ventricles, sulci and cisterns appear age appropriate. The signal intensities of the brain parenchyma are within normal limits. There are no signal abnormalities on the susceptibility weighted sequences. The major vascular flow voids are present. The visualized paranasal sinuses and mastoid air cells are clear. The surrounding soft tissues and o sseous structures are unremarkable. IMPRESSION: 1. No evidence of acute infarction, intracranial hemorrhage, mass effect or hydrocephalus.
[2025-04-20] MEDS: SODIUM CHLORIDE 0.9% 1,000 ML IV SCH (18:34)
[2025-04-20] MEDS: ATORVASTATIN 20 MG TAB PO SCH (22:04)
[2025-04-20 22:40] VITALS: BP 152/85; PULSE 65; RESP 19; TEMP 97.4; O2SAT 97
--- NOTE | 2025-04-20 22:43 | DVHINCON2 ---
Date of service: Apr 20, [address] Lopez Reason for Consultation Dizziness History of Present Illness Ms. Stovall is a 74 years old right-handed female with a history of hypertension, dyslipidemia, hypothyroidism, she came to the [facility] on 04/20/2025 with a chief company of dizziness. At this time, she is alert and fully oriented, she provided the following history Since 07/2024, the patient has spells of intense dizziness where everything spinning around her along with a roller coaster feeling, the event lasts for 3 - 4 seconds, and is triggered by physical activity, especially bending/reason the head, lying down or getting up from bed. She has seen her family doctor and a neurologist, but no diagnosis was given but was progress with meclizine She denies associated with hearing or vision changes, focal numbness/weakness Urinalysis, 04/20/2025: Unremarkable CBC, 04/20/2025: Unremarkable HCO3, 04/20/2025: 19 BUN/CR, 04/20/2025: 11/1.04 GFR, 04/20/2025: 56 CT head, 04/20/2025: No acute intracranial abnormality CTA head company, 04/20/2025: No evidence of hemodynamically significant intra cranial stenosis, proximal occlusion or aneurysm. No evidence of hemodynamically significant cervical stenosis or dissection. MRI head, 04/20/2025: No evidence of acute infarction, intracranial hemorrhage, mass effect or hydrocephalus. Past Medical History Hypertension, dyslipidemia, thyroid disorder Past Surgical History Cholecystectomy Family History Hypertension, heart disease Social History Smoker: Non-Smoker Alcohol: Rarely Drugs: Denies Drug Use Lives In: Home Allergies: Coded Allergies: Celecoxib (Verified Allergy, Severe, 02/05/20) Penicillins (Verified Allergy, Severe, 02/05/20) Codeine (Verified Allergy, Unknown, 02/05/20) RASH Sulfa Antibiotics (Verified Adverse Reaction, Unknown, 02/05/20) Home Meds Active Scripts Meclizine HCl (Meclizine 25) 25 Mg Tab, 25 MG PO BS for 7 Days, #7 TAB Prov:EZ RACHEL MD 11/13/21 Current Medications Current Medications Medications (Trade) Dose Ordered Sig/Marcela Route PRN Reason Start Time Stop Time Status Last Admin Sodium Chloride 1,000 ml @ 120 mls/hr Q8H20M IV 8/13/25 16:15 04/20/25 18:34 Acetaminophen/ Hydrocodone Bitart ([place] 5/325MG Tab) 1 tab Q4HP PRN PO MODERATE PAIN (4-6 PAIN SCALE) 04/20/25 16:15 Hold Ondansetron HCl (Zofran) 4 mg Q4HP PRN IV NAUSEA / VOMITING 04/20/25 16:15 Enoxaparin Sodium (Lovenox) 40 mg DAILY SC 04/21/25 10:00 Acetaminophen (Tylenol Tablet) 650 mg Q6HP PRN PO PAIN SCALE 1-3 OR TEMP>100.4 04/20/25 16:15 Morphine Sulfate 2 mg Q4HPRN PRN IV SEVERE PAIN (7-10 PAIN SCALE) 04/20/25 16:15 Hold Nitroglycerin (Ntrostat Sublingual) 0.4 mg Q5MINP PRN SL FOR CHEST PAIN 04/20/25 16:15 Morphine Sulfate 2 mg Q30M PRN IV FOR CHEST PAIN 04/20/25 16:15 Hold Aspirin 81 mg DAILY PO 04/21/25 10:00 Atorvastatin Calcium (Lipitor) 40 mg HS PO 04/20/25 22:00 04/20/25 22:04 Review of Systems As above, the other systems are negative Vital Signs Vital Signs Date Time Temp Pulse Resp B/P (MAP) Pulse Ox O2 Delivery O2 Flow Rate FiO2 04/20/25 20:00 86 04/20/25 17:53 98.2 12 160/82 (108) 94 98.2 04/20/25 12:00 Room Air* 0 21 Physical Exam GENERAL EXAM: General: the patient is well developed and nourished. No acute distress. HEENT: Normocephalic, neck is supple, no carotid bruits. No mass. RESPIRATORY: Normal respiratory effort with symmetrical lung expansion. Lungs clear to auscultation. CARDIOVASCULAR: Regular rate and rhythm with no murmurs. S1, S2. ABDOMEN: Soft, nontender, normal bowel sound NEUROLOGICAL: MENTAL STATUS: Awake and alert. Oriented to person, place, time and general circumstances. Able to give personal history. SPEECH, LANGUAGE, HIGHER CORTICAL FUNCTION: no aphasia or dysathria. CRANIAL NERVES: #2: Intact visual haro to confrontation. The optic discs were sharp. #3,4,6: Pupils are equal, round and reactive. EOMs full and conjugate. No nystagmus. #5: Facial sensation intact in all three divisions bilaterally. Mandibular strength intact. #7: Facial muscles symmetrical and strength intact. #8: Hearing grossly normal to voice. #9,10: Uvula and soft palate rise in the midline. Swallow and voice are normal. #11: Trapezius and sternomastoid strength intact bilaterally. #12: Tongue midline. No fasciculations or atrophy. SENSATION: Sensation to touch and pinprick is normal. MOTOR: Normal tone in the upper and lower extremity. Normal muscle bulk. No fasciculations. No abnormal movements or posturing. Muscle strength of the major groups in the upper extremities is 5/5. Muscle strength of the major groups in the lower extremities is 5/5. REFLEXES: Deep tendon reflexes are symmetrical. No pathological reflexes. CEREBELLAR/COORDINATION: Finger to nose and heel to smith are normal bilaterally. GAIT/STATION: deferred. Labs/Diagnostic Data Labs Test 04/20/25 13:17 04/20/25 11:58 04/20/25 11:12 Range/Units Troponin I High Sensitivity < 3 L </=34 ng/L Urine Color Colorless Yellow Urine Clarity Clear Clear Urine pH 7.5 5.0-9.0 Urine Specific [place] 1.007 1.001-1.035 Urine Protein Negative Negative Urine Ketones Negative Negative Urine Blood Negative Negative /uL Urine Nitrite Negative Negative Urine Bilirubin Negative Negative Urine Urobilinogen Normal Negative mg/dL Urine Leukocyte Esterase Negative Negative /uL Urine RBC 2 0 - 4 /hpf Urine Microscopic WBC < 1 0-5 /HPF Urine Squamous Epithelial Cells Few <5 /hpf Urine Bacteria None seen None Seen /hpf Urine Glucose Normal Normal mg/dL White Blood Count 4.1 L 4.4-10.8 10^3/uL Red Blood Count 4.35 4.0-5.20 10^6/uL Hemoglobin 13.9 12.2-16.2 g/dL Hematocrit 40.4 36.0-46.0 % Mean Corpuscular Volume 92.9 80.0-100.0 fL Mean Corpuscular Hemoglobin 31.9 28.0-32.0 pg Mean Corpuscular Hemoglobin Concent 34.4 32.0-36.0 g/dL Red Cell Distribution Width 12.8 11.8-14.3 % Platelet Count 196 140-450 10^3/uL Mean Platelet Volume 7.9 6.9-10.8 fL Neutrophils (%) (Auto) 57.9 37.0-80.0 % Lymphocytes (%) (Auto) 33.5 10.0-50.0 % Monocytes (%) (Auto) 6.7 0.0-12.0 % Eosinophils (%) (Auto) 0.9 0.0-7.0 % Basophils (%) (Auto) 1.0 0.0-2.0 % Neutrophils # (Auto) 2.4 1.6-8.6 10 ^3/uL Lymphocytes # (Auto) 1.4 0.4-5.4 10 ^3/uL Monocytes # (Auto) 0.3 0-1.3 10 ^3/uL Eosinophils # (Auto) 0 0-0.8 10 ^3/uL Basophils # (Auto) 0 0-0.2 10 ^3/uL Nucleated Red Blood Cells 0.1 % Sodium Level 141 136-145 mmol/L Potassium Level 3.6 3.5-5.1 mmol/L Chloride Level 108 H 98-107 mmol/L Carbon Dioxide Level 19 L 20-31 mmol/L Anion Gap 14 5-15 Blood Urea Nitrogen 11 9-23 mg/dL Creatinine 1.04 H 0.550-1.02 mg/dL Glomerular Filtration Rate Calc 56 >90 mL/min BUN/Creatinine Ratio 10.6 10.0-20.0 Serum Glucose 140 H 74-106 mg/dL Calcium Level 9.9 8.7-10.4 mg/dL Assessment Recurrent intense vertigo, likely she has benign paroxysmal positional vertigo Plan/Recommendation Monitoring Supportive treatment Telemetry Okay to use Antivert/meclizine for symptomatic history I have given her reading material about benign paroxysmal positional vertigo She need follow up with a neurologist for an ENT specialist in the office for positional test Prognosis was poor This medical document was created using an electronic medical record system with [employer] dictation system. Although this document has been carefully reviewed, there may still be some phonetic and typographical errors. These areas are purely typographical due to imperfections of the software programs, and do not reflect any compromise in the patient's medical care Plan discussed with: Patient, Other JALEESA YANEZ MD Apr 20, 2025 22:43
[2025-04-20] MEDS: ACETAMINOPHEN 325 MG TAB PO PRN (23:10)
[2025-04-20 23:50] VITALS: BP 152/85; PULSE 65; RESP 19; TEMP 97.4; O2SAT 97
[2025-04-21 05:00] VITALS: BP 124/76; PULSE 62; RESP 19; TEMP 98.3; O2SAT 92
--- NOTE | 2025-04-21 07:33 | DVHDS2 ---
New Physician D'charge PN Admitting Diagnosis Admitting Diagnosis dizziness Discharge Diagnosis dizziness, likely vertigo Operations or Procedures none Reason(s) For Hospitalization Surgery Hospital Course 74 F who comes to ER c/o dizziness on and off for several weeks. She states it is worsened by head movement or bending and states the room is spinning and eventually it resolves. She was admitted and had head CT, head and neck CTA and MRI brain which all were negative. SHe was seen by neurology as well. Hemodynamically she is stable. Her labs are all at baseline. She will be discharged home with outpt pcp and neuro follow up. [facility] to arrange for all follow up. All imaging including brain MRI showed NO acute findings, patient to be discharged home. Treatment Plan Discharge Condition of Discharge Good Disposition Home Discharge Instructions Diet: Consistent carbohydrate Activity: No Restrictions, As Tolerated Medications: see med sheet Follow Up Care Follow Up/Referral: pcp neuro Discharge Statement: "Patient was advised to return to the ER or call 911 if any headaches, dizziness, shortness of breath, chest pain, abdominal pain, bleeding, fevers, or worsening of medical condition. Patient was counseled about treatment plan, medications, possible side effects, patientverbalized understanding. All questions were answered to the best of my ability. This discharge took greater then 30 minutes in planning, reviewing documentation, counseling the patient, and discussing with other team members." ASHVIN KAPLAN MD Apr 21, 2025 07:33
[2025-04-21 08:00] VITALS: PULSE 74
[2025-04-21 08:17] LABS: Hematocrit 35.7 % (36.0-46.0); Hemoglobin 12.4 g/dL (12.2-16.2); Mean Corpuscular Hemoglobin 32.1 pg (28.0-32.0); Mean Corpuscular Volume 92.8 fL (80.0-100.0); Nucleated Red Blood Cells % 0.0 %
[2025-04-21 08:26] LABS: Alanine Aminotransferase 35 U/L (7-40); Albumin 4.1 g/dL (3.2-4.8); Alkaline Phosphatase 63 U/L (46-116); Anion Gap 11 (5-15); BUN/Creatinine Ratio 11.4 (10.0-20.0); Bilirubin, Total 0.8 mg/dL (0.2-1.0); Blood Urea Nitrogen 10 mg/dL (9-23); Calcium 8.8 mg/dL (8.7-10.4); Carbon Dioxide 21 mmol/L (20-31); Glucose 97 mg/dL (74-106); Potassium 3.5 mmol/L (3.5-5.1); Sodium 143 mmol/L (136-145); Total Protein 6.3 g/dL (5.7-8.2)
[2025-04-21 08:27] LABS: Chloride 111 mmol/L (98-107)
[2025-04-21 08:56] VITALS: BP 117/76; PULSE 57; RESP 17; TEMP 97.7; O2SAT 95
[2025-04-21] MEDS: MECLIZINE HCL 25 MG TAB PO ONE (10:27)
[2025-04-21] MEDS: ENOXAPARIN SOD 40 MG/0.4 ML SYRINGE SC SCH (10:27)
[2025-04-21] MEDS ORDERED: MECL25CH38 PO (10:46)
[2025-04-21 12:39] VITALS: BP 136/82; PULSE 55; RESP 16; TEMP 97.8; O2SAT 94
== END 2025-04-21 12:40 | disposition home or self-care (01) | DRG 149 ==
LOC: ER 10:37 → OVERFLOW 16:12 → TELE-WESTW 16:15
PROVIDERS: ADMIT Internal Medicine; ATTEND Internal Medicine
DX: H81.10 Benign paroxysmal vertigo, unspecified ear (principal); I10 Essential (primary) hypertension; E03.9 Hypothyroidism, unspecified; H02.402 Unspecified ptosis of left eyelid; E78.5 Hyperlipidemia, unspecified; Z88.5 Allergy status to narcotic agent; Z88.2 Allergy status to sulfonamides; Z88.0 Allergy status to penicillin; Z82.49 Family history of ischemic heart disease and other diseases of the circulatory system; Z90.49 Acquired absence of other specified parts of digestive tract
CPT/HCPCS: 36415; 70450; 70496; 70498; 70551; 71045; 80048; 80053; 81001; 84484; 85025; 87081; 93005; 97163; G0378

== ENCOUNTER 2025-06-20 13:24 | Emergency (ER) | payer OTHER ==
[~2025-06-20] VITALS: Ht 152.4 cm; Wt 74.0 kg
[~2025-06-20 13:24] MED LIST changes: +MECL25CH38 PO
--- NOTE | 2025-06-20 15:12 | DVH ---
XY CHEST TWO VIEWS ROUTINE CLINICAL HISTORY: R/o pna COMPARISON: None TECHNIQUE: Frontal and lateral view of the chest was obtained FINDINGS: Lines and Tubes: None Lungs: No focal consolidation. Pleura: No effusion. No pneumothorax. Cardiomediastinal contours: Unremarkable Bones: No acute osseous abnormality. IMPRESSION: 1. No acute cardiopulmonary disease.
--- NOTE | 2025-06-20 15:13 | ED.PDOC ---
SOB-HPI HPI Comments 75-year-old female presents to the ER with a chief complaint fatigue, weakness, yellow mucus for one month. Patient states that there is a strong desire to sleep. The patient's mucous is described as yellow. The patient has undergone two courses of steroids and two courses of antibiotics with the last dose of prednisone taken yesterday but these treatments have not provided relief. Prior MHx of hypertension, high lipids and thyroid disorder. Denies any other symptoms at this time. Denies fevers chills night sweats unintentional weight loss Denies persistent chest pain, shortness of breath, leg swelling Denies history of asthma nor any breathing conditions Denies history of pneumonia Denies recent international travel Chief Complaint: Cough Time Seen by MD: 15:10 Primary Care Provider: JARRET Ashley notes: Nurses Notes, Medications, Allergies Information Source: Patient Mode of Arrival: Ambulatory Severity: Moderate Timing: Weeks Duration: Since onset Context: At Rest, Spontaneous Onset PE Risk Factors: None History of: None Prehospital treatment: None Associated Signs and Symptoms: None If cough with SOB: Yellow Past Medical History PAST MEDICAL HISTORY: High Lipids, HTN, Thyroid Surgical History: Cholecystectomy [employer]IST History: Denies all [employer]IST Hx Family History Family History: Reviewed,noncontributory to illness, Unknown, Family hx of heart yun, Family hx of HTN Social History Smoker: Non-Smoker Alcohol: Rarely Drugs: Denies Drug Use Lives In: Home Constitutional: reports: weakness; denies: chills, diaphoresis, fatigue, fever, malaise, sweats, others EENTM: reports: nose congestion; denies: blurred vision, double vision, ear bleeding, ear discharge, ear drainage, ear pain, ear ringing, eye pain, eye redness, hearing loss, mouth pain, mouth swelling, nasal discharge, nose bleeding, nose pain, photophobia, tearing, throat pain, throat swelling, voice changes, others Respiratory: reports: shortness of breath; denies: cough, hemoptysis, orthopnea, SOB at rest, SOB with excertion, stridor, wheezing, others Cardiovascular: denies: chest pain, dizzy spells, diaphoresis, Dyspnea on exertion, edema, irregular heart beat, left arm pain, lightheadedness, palp itations, PND, syncope, others Gastrointestinal: denies: abdomen distended, abdominal pain, blood streaked bowels, constipated, diarrhea, dysphagia, difficulty swallowing, hematemesis, melena, nausea, poor appetite, poor fluid intake, rectal bleeding, rectal pain, vomiting, others Genitourinary: denies: abnormal vagina bleeding, burning, dyspareunia, dysuria, flank pain, frequency, hematuria, incontinence, pain, , vagina discharge, urgency, others Neurological: denies: dizziness, fainting, headache, left sided numbness, left sided weakness, numbness, paresthesia, pre-existing deficit, right sided numbness, right sided weakness, seizure, speech problems, tingling, tremors, weakness, others Musculoskeletal: denies: back pain, gout, joint pain, joint swelling, muscle pain, muscle stiffness, neck pain, others Integumetry: denies: bruises, change in color, change in hair/nails, dryness, laceration, lesions, lumps, rash, wounds, others Allergic/Immunocompromised: denies: Difficulty Healing, Frequent Infections, Hives, Itching, others Hematologic/Lymphatic: denies: anemia, blood clots, easy bleeding, easy br uising, swollen glands, others Endocrine: denies: excessive hunger, excessive sweating, excessive thirst, excessive urination, flushing, intolerance to cold, intolerance to heat, unexplained weight gain, unexplained weight loss, others Psychiatric: denies: anxiety, bipolar disorder, depression, hopeless, panic disorder, schizophrenia, sleepless, suicidal, others All Other Systems: Reviewed and Negative Physical Exam General Appearance: No Apparent Distress, Normal HEENT: Normal ENT Inspection, Pharynx Normal, TMs Normal Neck: Full Range of Motion, Non-Tender, Normal, Normal Inspection Respiratory: Chest Non-Tender, Lungs Clear, No Accessory Muscle Use, No Respiratory Distress, Normal Breath Sounds Cardiovascular: No Edema, No JVD, No Murmur, No Gallop, Normal Peripheral Pulses, Regular Rate/Rhythm Breast Exam: Deferred Gastrointestinal: No Organomegaly, Non Tender, No Pulsatile Mass, Normal Bowel Sounds, Soft Genitalia: Deferred Pelvic: Deferred Rectal: Deferred Extremities: No calf tenderness, Normal capillary refill, Normal inspection, Normal range of motion, Non-tender, No pedal edema Musculoskeletal : Apperance: Normal Neurologic: Alert, bar captain II-XII nml as Tested, No Motor Deficits, Normal Affect, Normal Mood, No Sensory Deficits Cerebellar Function: Normal Reflexes: Normal Skin: Dry, Normal Color, Warm Lymphatic: No Adenopathy Was a procedure done? Was a procedure done?: No Differential Dx Differential Diagnosis: Bronchitis, Pneumonia, Sinusitis, Allergic Rhinitis, Otitis Media, URI X-Ray, Labs, Meds, VS Vital Signs Date Time Temp Pulse Resp B/P (MAP) Pulse Ox O2 Delivery O2 Flow Rate FiO2 06/20/25 16:24 98.0 63 16 112/62 (79) 98 98.0 06/20/25 16:24 63 17 98 Room Air 06/20/25 13:26 97.6 67 15 107/46 96 97.6 Lab Test 06/20/25 14:49 06/20/25 14:28 Range/Units White Blood Count 7.3 4.4-10.8 10^3/uL Red Blood Count 4.06 4.0-5.20 10^6/uL Hemoglobin 13.1 12.2-16.2 g/dL Hematocrit 38.1 36.0-46.0 % Mean Corpuscular Volume 93.8 80.0-100.0 fL Mean Corpuscular Hemoglobin 32.2 H 28.0-32.0 pg Mean Corpuscular Hemoglobin Concent 34.3 32.0-36.0 g/dL Red Cell Distribution Width 12.8 11.8-14.3 % Platelet Count 191 140-450 10^3/uL Mean Platelet Volume 7.8 6.9-10.8 fL Neutrophils (%) (Auto) 67.9 37.0-80.0 % Lymphocytes (%) (Auto) 22.9 10.0-50.0 % Monocytes (%) (Auto) 8.1 0.0-12.0 % Eosinophils (%) (Auto) 0.7 0.0-7.0 % Basophils (%) (Auto) 0.4 0.0-2.0 % Neutrophils # (Auto) 4.9 1.6-8.6 10 ^3/uL Lymphocytes # (Auto) 1.7 0.4-5.4 10 ^3/uL Monocytes # (Auto) 0.6 0-1.3 10 ^3/uL Eosinophils # (Auto) 0.1 0-0.8 10 ^3/uL Basophils # (Auto) 0 0-0.2 10 ^3/uL Nucleated Red Blood Cells 0.1 % Sodium Level 144 136-145 mmol/L Potassium Level 3.7 3.5-5.1 mmol/L Chloride Level 110 H 98-107 mmol/L Carbon Dioxide Level 24 20-31 mmol/L Anion Gap 10 5-15 Blood Urea Nitrogen 15 9-23 mg/dL Creatinine 1.13 H 0.550-1.02 mg/dL Glomerular Filtration Rate Calc 51 >90 mL/min BUN/Creatinine Ratio 13.3 10.0-20.0 Serum Glucose 103 74-106 mg/dL Calcium Level 9.0 8.7-10.4 mg/dL Total Bilirubin 0.6 0.2-1.0 mg/dL Aspartate Amino Transferase (AST) 28 13-40 U/L Alanine Aminotransferase (ALT) 53 H 7-40 U/L Alkaline Phosphatase 72 46-116 U/L Total Protein 6.8 5.7-8.2 g/dL Albumin 4.2 3.2-4.8 g/dL Urine Color Yellow Yellow Urine Clarity Clear Clear Urine pH 7.5 5.0-9.0 Urine Specific [place] 1.022 1.001-1.035 Urine Protein Trace H Negative Urine Ketones Negative Negative Urine Blood Negative Negative /uL Urine Nitrite Negative Negative Urine Bilirubin Negative Negative Urine Urobilinogen Normal Negative mg/dL Urine Leukocyte Esterase Negative Negative /uL Urine RBC 1 0 - 4 /hpf Urine Microscopic WBC 1 0-5 /HPF Urine Squamous Epithelial Cells Few <5 /hpf Urine Bacteria None seen None Seen /hpf Urine Hyaline Casts Few 0 - 2 /lpf Urine Glucose Normal Normal mg/dL X-Ray, Labs, Meds, VS Comment 75-year-old female presents to the ER with a chief complaint of shortness of breath. Patient arrives alert and oriented, ABC's intact, afebrile, vital signs stable, saturating well in room air Peripheral IV insertion+ labs were ordered. BMP was ordered to exclude electrolyte abnormalities, renal failure, dehydration, hyperglycemia CMP was ordered to exclude electrolyte abnormalities, renal failure, dehydration, hyperglycemia and/or liver enzyme abnormalities. Urinalysis was ordered to rule out UTI or hematuria. Diagnostic imaging ordered by me and results interpreted by radiology : Chest x-ray The patient is overall well-appearing nontoxic on exam. On physical exam, respirations even and unlabored, clear to auscultation bilaterally. Oxygen stable on room air. Chest x-ray was obtained and interpreted independently by myself as not showing focal consolidation or lobar pneumonia Low suspicion of strep pharyngitis given physical exam findings and patient's presenting symptoms No signs of meningismus on exam Overall, the patient is well hydrated and nontoxic. Plan for symptomatic control for fever and pain as needed. The patient was able to tolerate p.o. intake in the ED. at this time, patient is safe for discharge home. The exam findings and plan discussed. We will discharge home with PCP follow up and strict return precautions. Discussed that cough can linger up to 6 weeks after viral URI Supportive care and return precautions discussed Counseled viral infection and explained that antibiotics would not be helpful in resolving the illness sooner. Recommended vitamin C, rest, handwashing, and symptomatic care. Expect 2-week course with possibly of cough lingering up to 6 weeks. Nonpharmacological remedies for fluids has been recommended as well Additional MDM Review of External, Non-ED records: External records reviewed. Discussion with independent historian (EMS, family) history obtained from the patient/parents (if applicable) at bedside Chronic conditions affecting care: None Social determinants of health affecting care: None Consideration of admission (observation or admission): I considered escalation of care to admission for this patient, however given the reassuring workup, the patient is safe for outpatient management. Discussion with the Radiology: No Tests considered but not performed: Prescription medication considered but not given: Time of 1ST Reevaluation: 15:40 Reevaluation 1ST: Unchanged Patient Education/Counseling: Diagnosis, Treatment, Prognosis Family Education/Counseling: No Family Present SEPSIS Sepsis Screen Date sepsis recognized/suspect: Jun 20, 2025 Time Sepsis recognized/suspect: 1329 Recent Procedure: No On Antibiotic Therapy: No Respiratory Rate >20: No Heart Rate >90: No Temp<36 C (96.8 F) or >38.3 C: No SBP <90 or MAP <65 mmHG: No New Acute Mental Status Change: No Is the patient on CPAP, BIPAP,: No Physician Orders Chest Two Views Routine (06/20/25 14:22) Vital Signs Date Time Temp Pulse Resp B/P (MAP) Pulse Ox O2 Delivery O2 Flow Rate FiO2 06/20/25 16:24 98.0 63 16 112/62 (79) 98 98.0 06/20/25 16:24 63 17 98 Room Air 06/20/25 13:26 97.6 67 15 107/46 96 97.6 Laboratory Tests Test 06/20/25 14:49 White Blood Count 7.3 10^3/uL (4.4-10.8) Departure 1 Departure Time of Disposition: 15:56 Impression: Primary Impression: Viral syndrome Disposition: 01 HOME / SELF CARE / HOMELESS Condition: Stable Discharged With: Self Critical Care Note Critical Care Time?: No Stability Stability form required: No Heart Score Heart Score: Heart Score Response (Comments) Value History N/A 0 EKG N/A 0 Age N/A 0 Risk Factors N/A 0 Troponin N/A 0 Total 0 I personally scribed for GENNY FLORES NP ([email or web address]) on 06/20/25 at 15:13. Electronically submitted by Edd Harp ([email or web address]). GENNY FLORES NP Jun 20, 2025 15:13
[2025-06-20 15:26] LABS: Albumin 4.2 g/dL (3.2-4.8); Alkaline Phosphatase 72 U/L (46-116); Anion Gap 10 (5-15); BUN/Creatinine Ratio 13.3 (10.0-20.0); Blood Urea Nitrogen 15 mg/dL (9-23); Calcium 9.0 mg/dL (8.7-10.4); Carbon Dioxide 24 mmol/L (20-31); Glucose 103 mg/dL (74-106); Potassium 3.7 mmol/L (3.5-5.1); Sodium 144 mmol/L (136-145); Total Protein 6.8 g/dL (5.7-8.2)
[2025-06-20 15:27] LABS: Bilirubin, Total 0.6 mg/dL (0.2-1.0)
[2025-06-20 15:28] LABS: Urine Protein, UAD TRACE (Negative)
[2025-06-20 15:30] LABS: Alanine Aminotransferase 53 U/L (7-40); Chloride 110 mmol/L (98-107)
[2025-06-20 16:06] LABS: Hematocrit 38.1 % (36.0-46.0); Hemoglobin 13.1 g/dL (12.2-16.2); Mean Corpuscular Hemoglobin 32.2 pg (28.0-32.0); Mean Corpuscular Volume 93.8 fL (80.0-100.0); Nucleated Red Blood Cells % 0.1 %
[2025-06-20 16:24] VITALS: BP 112/62; PULSE 63; RESP 17; TEMP 98; O2SAT 98
== END 2025-06-20 16:25 | disposition home or self-care (01) ==
LOC: ER 13:24
DX: B34.9 Viral infection, unspecified (principal); F10.90 Alcohol use, unspecified, uncomplicated; E78.5 Hyperlipidemia, unspecified; I10 Essential (primary) hypertension; Z90.49 Acquired absence of other specified parts of digestive tract; Y90.9 Presence of alcohol in blood, level not specified
CPT/HCPCS: 36415; 71046; 80053; 81001; 85025